=== PATIENT | male | born 1960 | race Caucasian/White ===

== ENCOUNTER 2021-08-18 11:49 | Outpatient (CLI) | payer MEDICARE, SELFPAY ==
--- NOTE | 2021-08-18 11:59 | XR_ITS ---
WS: [id number] Exam: XR chest 2V* [id number] Date/Time of Exam: 08/18/2021 12:00 PM Reason For Exam: R63.4 - Abnormal weight loss Comparison 02/15/2016. The lungs are hyperinflated and clear. Unremarkable cardiomediastinal silhouette. Neurostimulator nayeli ctrodes are noted in the region of the thoracic spine. Mild thoracolumbar scoliosis. 3 mm x 2 mm meta llic foreign body seen in the anterior right chest wall. XR/XR chest 2V* [id number] IMPRESSION: 1. Pulmonary hyperinflation which might indicate obstructive lung disease. No a cute cardiopulmonary finding.
--- NOTE | 2021-08-18 11:59 | XR_ITS ---
WS: [id number] Exam: XR abdomen 1V* [id number] Date/Time of Exam: 08/18/2021 12:00 PM Reason For Exam: R10.9 - Unspecified abdominal pain No bowel obstruction or free air. No sign of organ enlargement. Regional bony elements are intact. A neurostimulator pack superimposes the left pelvis with the leads extending cephalad. XR/XR abdomen 1V* [id number] IMPRESSION: 1. No acute abdominal finding.
== END 2021-08-18 11:50 | disposition home or self-care (01) ==
LOC: RAD 11:54
PROVIDERS: PCP Nurse Practitioner Family; Visit Provider Nurse Practitioner Family
DX: R10.9 Unspecified abdominal pain (principal); R63.4 Abnormal weight loss; Z87.891 Personal history of nicotine dependence
CPT/HCPCS: 71046; 74018; 80053; 84443; 85025

== ENCOUNTER → 2021-08-24 09:09 | Outpatient (BNVA) | payer MEDICARE, SELFPAY | PROVIDERS: PCP Nurse Practitioner Family; Visit Provider Nurse Practitioner Family | DX: R10.9 Unspecified abdominal pain (principal) | CPT/HCPCS: 81000 ==

== ENCOUNTER → 2021-11-02 16:26 | Outpatient (BNVA) | payer MEDICARE, SELFPAY | PROVIDERS: PCP Nurse Practitioner Family; Visit Provider Internal Medicine | DX: Z01.812 Encounter for preprocedural laboratory examination (principal); R10.9 Unspecified abdominal pain | CPT/HCPCS: 87635 ==

== ENCOUNTER 2021-11-09 07:55 | Day surgery (SDC) | payer MEDICARE, MEDICAID, SELFPAY ==
[2021-11-06 11:59] VITALS: BMI 19.8
--- NOTE | 2021-11-09 07:50 | P.HP_ITS ---
Same Day Surgery H&P Indication for Procedure/HPI DATE OF PROCEDURE: November 09, 2021 CHIEF COMPLAINT/INDICATIONFOR SURGICAL PROCEDURE: Heartburn and with heartburn and weight loss as well as a history of colon polyps PREOP DIAGNOSIS: As above PLANNED PROCEDURE: Operation Date: 11/09/21 09:00 Proposed Procedures p EGD [id number]/r10.9/z86.010(Not Applicable) - Italo Valiente MD s Colonoscopy(Not Applicable) - Italo Valiente MD Medications/Allergies* Home Medications Medication Instructions Recorded Confirmed Type buprenorphine HCl 750 mcg buccal 750 mcg BUCCAL Q12H 08/18/21 11/02/21 History film (Belbuca) meloxicam 15 mg tablet 15 mg PO DAILY 08/18/21 11/02/21 History Allergies/Adverse Reactions Allergy/AdvReac Type Severity Reaction Status Date / Time NSAIDS (Non-Steroidal Allergy ADR-Abdominal Verified 11/02/21 13:24 Anti-Inflamma Pain Pertinent History/Comorbid Conditions* Social History Smoking and tobacco status: former smoker Alcohol intake: never Pertinent Exam Findings alert, oriented x 3, clear to auscultation bilaterally, regular rate & rhythm, operative site marked and procedure specific exam findings Recommendations Surgery/Procedure today Coding Level of Care Code 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
--- NOTE | 2021-11-09 09:13 | PC.NURSE ---
TAP WATER ENEMA COMPLETED WITH RESULTS X 2. CLEAR AND FLAKES OF BROWN STOOL. WILL PROCEED WITH PROCEDURE. PRN ZOFRAN GIVEN FOR NAUSEA AND DRY HEAVING
[2021-11-09 09:15] VITALS: BP 151/79; PULSE 60; RESP 18; TEMP 36.8; O2SAT 99
[2021-11-09] MEDS: ondansetron 2 mg/ML SDV 2 mL 4 MG IVP (09:15)
[2021-11-09] MEDS: sodium chloride 0.9% 1,000 ML 30 ML IV (09:23)
--- NOTE | 2021-11-09 10:07 | ANES.PREANE2 ---
Pre-Anesthetic Assessment Height/Weight: Height 1.78 m Weight 62.596 kg Temp Pulse Resp BP Pulse Ox 98.3 F 60 18 151/79 99 11/09/21 09:15 11/09/21 09:15 11/09/21 09:15 11/09/21 09:15 11/09/21 09:15 Preop Diagnosis: WL abd pain Operation Date: 11/09/21 09:00 Proposed Procedures p EGD [id number]/r10.9/z86.010(Not Applicable) - Italo Valiente MD s Colonoscopy(Not Applicable) - Italo Valiente MD Was Beta Rylee taken within 24 hours: N/A Was Clonidine taken within 24 hours: N/A Last intake: Intake Last Liquid Date 11/08/21 Last Liquid Time 21:00 Last Solid Date 11/07/21 Last Solid Time 10:00 Social quit smoking 2016 Exam alert, oriented x 3, clear to auscultation bilaterally and regular rate & rhythm Airway Submandibular: within normal limits Cervical ROM: within normal limits Mallampati: Class II Dentition: false History/ROS No significant history except as noted and No significant complaints Pulmonary None reported CV/HEM None reported None reported Hepatic None reported GI None reported epigastric pain Metabolic None reported Musc/skel None reported Neuropsych Anxiety Anesthetic Plan ASA status: 2 Anesthesia: Anesthesia Evaluation and MAC Risk of > 500 ml blood loss (7ml/kg in children): No Medications/Allergies Home Medications Medication Instructions Recorded Confirmed Last Taken Type buprenorphine HCl 750 mcg buccal 750 mcg BUCCAL Q12H 08/18/21 11/09/21 11/09/21 History film (Belbuca) meloxicam 15 mg tablet 15 mg PO DAILY 08/18/21 11/09/21 11/08/21 History Allergies Allergy/AdvReac Type Severity Reaction Status Date / Time NSAIDS (Non-Steroidal Allergy ADR-Abdominal Verified 11/09/21 08:59 Anti-Inflamma Pain Current Medications Generic Name Dose Route Start Last Admin Trade Name Freq PRN Reason Stop Dose Admin Sodium Chloride 1,000 mls @ 30 mls/hr 11/09/21 08:00 11/09/21 09:23 Sodium Chloride 0.9% IV 11/10/21 07:59 30 mls/hr .Q24H DEMARCUS Administration PFSH Anesthesia Social History Smoking and tobacco status: former smoker Alcohol intake: never Data Anesthesia Cardiac Studies: No Data to Display
[2021-11-09 10:35] VITALS: BP 91/55; PULSE 51; RESP 16; TEMP 36.1; O2SAT 97
[2021-11-09 10:48] VITALS: BP 109/59; PULSE 56; RESP 18; O2SAT 99
--- NOTE | 2021-11-09 14:27 | ANE.PACU2 ---
Inpatient post-anesthesia follow up: Airway intact: Yes Vital signs: Temperature 97.0 F Pulse Rate 56 Respiratory Rate 18 Blood Pressure 109/59 Pulse Oximetry 99 Oxygen Delivery Me thod Room Air Oxygen Flow Rate 3 Fraction of Inspir ed Oxygen Hydration adequate: Yes Nausea and vomiting: No Pain level: 1 Mental status: Baseline
== END 2021-11-09 11:10 | disposition home or self-care (01) ==
PROVIDERS: PCP Nurse Practitioner Family; Visit Provider Internal Medicine
PROC: 0DJ08ZZ Inspection of Upper Intestinal Tract, Via Natural or Artificial Opening Endoscopic (ICD-10-PCS; CPT 43235; principal; 2021-11-09 09:00)
PROC: 0DJD8ZZ Inspection of Lower Intestinal Tract, Via Natural or Artificial Opening Endoscopic (ICD-10-PCS; CPT 45378; 2021-11-09 09:00)
DX: R10.9 Unspecified abdominal pain (principal); Z86.010 Personal history of colon polyps; Z87.891 Personal history of nicotine dependence; K57.30 Diverticulosis of large intestine without perforation or abscess without bleeding
CPT/HCPCS: 43235; 45378; 96374; J2405; J2704; J7030

== ENCOUNTER 2023-05-24 08:43 | Outpatient (CLI) | payer MEDICARE, MEDICAID, SELFPAY ==
--- NOTE | 2023-05-24 09:00 | US_ITS ---
WS: [id number] RIGHT UPPER QUADRANT ULTRASOUND HISTORY: R10.9 - Unspecified abdominal pain COMPARISON: None available. Liver: 16.8 cm in length. Normal size liver and echogenicity. No bile duct dilatation or mass. Portal Vein: Normal hepatopetal flow with monophasic waveform. Gallbladder: Normally distended gallbladder with no stones or wall thickening. CBD: 0.3 cm Pancreas: Normal size and echogenicity. Right kidney: 9.6 cm in length. Normal size and echogenicity. No hydronephrosis or mass. Aorta and IVC: Unremarkable abdominal aorta and IVC. No ascites. IMPRESSION: Normal RIGHT upper quadrant ultrasound.
== END 2023-05-24 08:44 | disposition home or self-care (01) ==
PROVIDERS: PCP Nurse Practitioner Family; Visit Provider Nurse Practitioner Family
DX: R10.9 Unspecified abdominal pain (principal)
CPT/HCPCS: 76705

== ENCOUNTER → 2024-07-03 10:00 | Outpatient (BNVA) | payer MEDICARE, MEDICAID, SELFPAY | PROVIDERS: PCP Nurse Practitioner Family; Visit Provider Nurse Practitioner Family | DX: Z12.5 Encounter for screening for malignant neoplasm of prostate (principal); R63.4 Abnormal weight loss; R03.0 Elevated blood-pressure reading, without diagnosis of hypertension; R10.9 Unspecified abdominal pain | CPT/HCPCS: 80053; 80061; 84443; 85025; G0103 ==

== ENCOUNTER → 2025-01-23 13:15 | Outpatient (BNVA) | payer MEDICARE, SELFPAY | PROVIDERS: PCP Nurse Practitioner Family; Visit Provider Nurse Practitioner Family | DX: Z12.5 Encounter for screening for malignant neoplasm of prostate (principal); R10.9 Unspecified abdominal pain | CPT/HCPCS: 80053; 85025; G0103 ==